=== PATIENT | male | born 1945 | race Caucasian/White ===

== ENCOUNTER → 2023-12-25 06:25 | Outpatient (REF) | payer MEDICARE, OTHER, SELFPAY ==
[2023-12-25 09:12] LABS: ALT (SGPT) 21 U/L (0-50); AST (SGOT) 29 U/L (17-59); Alkaline Phosphatase 81 U/L (38-126); Blood Urea Nitrogen 62 mg/dl (9-20); Calcium 9.2 mg/dl (8.4-10.2); Carbon Dioxide 20 mmol/L (22-30); Chloride 103 mmol/L (98-107); Glucose 147 mg/dl (70-99); HDL Cholesterol 38 mg/dl; LDL Cholesterol, Calculated 48 mg/dl; Phosphorus 4.8 mg/dl (2.5-4.5); Potassium 4.7 mmol/L (3.5-5.1); Sodium 137 mmol/L (135-145); Total Bilirubin 0.8 mg/dl (0.2-1.3); Total Cholesterol 118 mg/dl (50-199); Total Protein 7.2 g/dl (6.3-8.2); Triglyceride 163 mg/dl (10-149); Very Low Density Lipoprotein 32 mg/dl (0-30); eGFR 19.08
[2023-12-25 09:22] LABS: Intact PTH 235.1 pg/ml (13.6-85.8)
[2023-12-25 09:40] LABS: TSH 9.37 uIU/ml (0.47-4.68)
[2023-12-25 09:44] LABS: Protein/creatinine Ratio 4.3; Urine Protein 270 mg/dl
[2023-12-25 09:56] LABS: Microalbumin, Random Urine > 57.0 mg/dl (0.6-1.7); Microalbumin/creatinine Ratio 899.1 mg/g
[2023-12-25 11:38] LABS: Glycohemoglobin (HgbA1c) 7.3 % (4.0-5.6)
== END ==
LOC: HWLAB 06:25
PROVIDERS: ATTENDING PHYSICIAN Specialist; FAMILY PHYSICIAN Internal Medicine
DX: N18.4 Chronic kidney disease, stage 4 (severe) (principal); E11.21 Type 2 diabetes mellitus with diabetic nephropathy; E03.9 Hypothyroidism, unspecified
CPT/HCPCS: 36415; 80053; 80061; 82043; 82570; 83036; 83970; 84100; 84156; 84439; 84443

== ENCOUNTER → 2024-01-22 12:35 | Outpatient (REF) | payer MEDICARE, OTHER, SELFPAY ==
[2024-01-22 16:15] LABS: Blood Urea Nitrogen 61 mg/dl (9-20); Carbon Dioxide 23 mmol/L (22-30); Chloride 98 mmol/L (98-107); Glucose 128 mg/dl (70-99); Potassium 4.2 mmol/L (3.5-5.1); Sodium 133 mmol/L (135-145); eGFR 24.48
== END ==
LOC: HWRAD 12:35
PROVIDERS: ATTENDING PHYSICIAN Specialist; FAMILY PHYSICIAN Internal Medicine
DX: N17.9 Acute kidney failure, unspecified (principal); N18.4 Chronic kidney disease, stage 4 (severe)
CPT/HCPCS: 36415; 76770; 80048

== ENCOUNTER → 2024-03-07 08:06 | Outpatient (REF) | payer MEDICARE, OTHER, SELFPAY | LOC: RCS 08:06 | PROVIDERS: ATTENDING PHYSICIAN Internal Medicine Cardiovascular Disease; FAMILY PHYSICIAN Internal Medicine | DX: I25.5 Ischemic cardiomyopathy (principal) | CPT/HCPCS: 93306 ==

== ENCOUNTER → 2024-03-28 06:46 | Outpatient (REF) | payer MEDICARE, OTHER, SELFPAY ==
[2024-03-28 10:00] LABS: Hematocrit 41.4 % (39.0-52.0); Hemoglobin 13.5 g/dL (13.0-18.0)
[2024-03-28 10:08] LABS: Albumin 4.1 g/dl (3.5-5.0); Blood Urea Nitrogen 48 mg/dl (9-20); Calcium 8.8 mg/dl (8.4-10.2); Carbon Dioxide 23 mmol/L (22-30); Chloride 104 mmol/L (98-107); Glucose 88 mg/dl (70-99); Phosphorus 4.5 mg/dl (2.5-4.5); Potassium 4.4 mmol/L (3.5-5.1); Sodium 138 mmol/L (135-145); eGFR 26.94
[2024-03-28 10:38] LABS: Urine Protein 393 mg/dl
[2024-03-29 11:04] LABS: Intact PTH 258.4 pg/ml (13.6-85.8)
== END ==
LOC: HWLAB 06:46
PROVIDERS: ATTENDING PHYSICIAN Specialist; FAMILY PHYSICIAN Internal Medicine
DX: N17.9 Acute kidney failure, unspecified (principal)
CPT/HCPCS: 36415; 80069; 82570; 83970; 84156; 85014; 85018

== ENCOUNTER → 2024-04-14 06:29 | Day surgery (SDC) | payer MEDICARE, OTHER, SELFPAY ==
[2024-04-14 07:16] LABS: Glucose - Point of Care 112 mg/dl (70-99)
== END ==
LOC: GI 06:29
PROVIDERS: ATTENDING PHYSICIAN Internal Medicine
DX: Z12.11 Encounter for screening for malignant neoplasm of colon (principal); D12.3 Benign neoplasm of transverse colon; K57.30 Diverticulosis of large intestine without perforation or abscess without bleeding; K64.8 Other hemorrhoids; Z86.010 Personal history of colon polyps
CPT/HCPCS: 45385; 88305; 82962

== ENCOUNTER → 2024-04-22 06:12 | Outpatient (REF) | payer MEDICARE, OTHER, SELFPAY ==
[2024-04-22 10:39] LABS: ALT (SGPT) 23 U/L (0-50); AST (SGOT) 28 U/L (17-59); Albumin 3.9 g/dl (3.5-5.0); Alkaline Phosphatase 77 U/L (38-126); Blood Urea Nitrogen 47 mg/dl (9-20); Calcium 9.2 mg/dl (8.4-10.2); Carbon Dioxide 21 mmol/L (22-30); Chloride 105 mmol/L (98-107); Glucose 130 mg/dl (70-99); HDL Cholesterol 31 mg/dl; LDL Cholesterol, Calculated 53 mg/dl; Potassium 4.7 mmol/L (3.5-5.1); Sodium 137 mmol/L (135-145); Total Bilirubin 0.8 mg/dl (0.2-1.3); Total Cholesterol 105 mg/dl (50-199); Total Protein 6.9 g/dl (6.3-8.2); Triglyceride 105 mg/dl (10-149); Very Low Density Lipoprotein 21 mg/dl (0-30); eGFR 24.48
[2024-04-22 10:52] LABS: Free T4 1.23 ng/dl (0.78-2.19)
[2024-04-22 11:06] LABS: TSH 7.76 uIU/ml (0.47-4.68)
[2024-04-22 11:26] LABS: Microalbumin, Random Urine > 57.0 mg/dl (0.6-1.7)
[2024-04-22 11:54] LABS: Glycohemoglobin (HgbA1c) 6.9 % (4.0-5.6)
== END ==
LOC: HWLAB 06:12
PROVIDERS: ATTENDING PHYSICIAN Internal Medicine
DX: E11.21 Type 2 diabetes mellitus with diabetic nephropathy (principal); E03.9 Hypothyroidism, unspecified
CPT/HCPCS: 36415; 80053; 80061; 82043; 83036; 84439; 84443

== ENCOUNTER 2024-05-13 09:37 | Inpatient (IN) | payer MEDICARE, OTHER, SELFPAY ==
[2024-05-13] VITALS (14 sets, daily range): BP systolic 99–123; BP diastolic 53–95; BMI 25.5; BMI 24.5
[2024-05-13 04:43] LABS: % Basophils 0.2 % (0-2); % Eosinophils 0.1 % (0-6); % Immature Granulocytes 0.9 % (0-0.5); % Monocytes 11.1 % (1.7-9.3); % Neutrophils 81.7 % (42.2-75.2); Absolute Immature Granulocytes 0.1 10^3/uL (0-0.05); Absolute Lymphocytes 0.6 10^3/uL (1.2-3.4); Absolute Monocytes 1.2 10^3/uL (0.1-0.6); Absolute Neutrophils 8.8 10^3/uL (1.4-6.5); Hematocrit 29.4 % (39.0-52.0); Hemoglobin 10.4 g/dL (13.0-18.0); Mean Corp Hgb Conc. 35.4 g/dL (33.0-37.0); Mean Corpuscular Hgb 31.1 pg (27.0-31.0); Mean Platelet Volume 10.4 fL (7.4-10.4); Nucleated Red Blood Cells % 0 % (-); Platelet Count 198 10^3/uL (130-400); Red Blood Cell Count 3.34 10^6/uL (4.70-6.10); Red Cell Dist. Width 12.7 % (11.5-14.5); White Blood Cell Count 10.7 10^3/uL (4.8-10.8)
[2024-05-13 04:55] LABS: AST (SGOT) 41 U/L (17-59); Albumin 3.2 g/dl (3.5-5.0); Alkaline Phosphatase 63 U/L (38-126); Blood Urea Nitrogen 84 mg/dl (9-20); Calcium 7.7 mg/dl (8.4-10.2); Carbon Dioxide 15 mmol/L (22-30); Chloride 95 mmol/L (98-107); Estimated Creatinine Clearance 17 ml/min; Glucose 261 mg/dl (70-99); Potassium 4.2 mmol/L (3.5-5.1); Sodium 125 mmol/L (135-145); Total Bilirubin 0.9 mg/dl (0.2-1.3); Total Protein 5.6 g/dl (6.3-8.2); eGFR 19.08
[2024-05-13 04:58] LABS: INR 1.28; PT 15.8 Sec (11.4-14.6)
[2024-05-13 05:09] LABS: ALT (SGPT) 43 U/L (0-50)
[2024-05-13 05:54] LABS: Troponin I 0.044 ng/ml
--- NOTE | 2024-05-13 06:10 | ED.GENMED ---
History of Present Illness
General
Chief Complaint: Fainting/Passed Out
Source: patient
Exam Limitations: none
Time Seen by Provider: 05/13/24 05:31
Nursing documentation reviewed up to this point in time: agreed with
History of Present Illness
History of Present Illness:
Pleasant 78-year-old male that presents with multiple syncopal episodes including one that caused a head strike. Patient sustained a laceration to the back of his head. According to he was on his way to the bathroom as he had been having
diarrhea and dark tarry stools. Patient does have a history of upper GI bleed. He had did have a bleeding ulcer in the past. Tonight when going to the bathroom he felt lightheaded and dizzy and passed out striking his head. When he finally got
to the toilet he passed out a second time. EMS was called and found him awake, alert, and oriented. His blood sugar was 290. He was given IV fluids to raise his hypotensive blood pressure.
Vital signs are stable. Patient not hypoxic
Nursing note reviewed. I agree with nursing documentation up to this point in time.
Home Meds and allergies reviewed.
NUMBER AND COMPLEXITY OF PROBLEMS ADDRESSED AT THE ENCOUNTER
� Chronic conditions affecting care: Coronary artery disease, hypertension, hyperlipidemia, upper GI bleed, [place]
� Acute Exacerbation and/or Progression of Chronic Illness: Acute GI bleed
� Differential Diagnosis includes: Upper GI bleed, ulcer, syncope, laceration
AMOUNT AND/OR COMPLEXITY OF DATA TO BE REVIEWED AND ANALYZED
I performed an independent evaluation of the following and my interpretation is:
EKG: EKG shows normal sinus rhythm rate 74 with normal intervals, left axis deviation. PAC and PVC present. No evidence of acute ischemia present.
CT:
X-rays:
Ultrasound:
Laboratory Studies: Hemoglobin is 10.4
Other:
Review of other/old records: Colonoscopy on 04/14/2024- A 4 mm polyp was found in the transverse colon. The polyp was
semi-sessile. The polyp was removed with a cold snare. Resection and retrieval were completed. Scattered diverticula were found in the left colon and right colon.
Internal hemorrhoids were found during retroflexion.
Clinical information was obtained by an independent historian: Significant other present at the bedside
Prescriptions/Medications Considered but not given:
Further testing considered but not performed:
RISK OF COMPLICATIONS AND/OR MORBIDITY OR MORTALITY OF PATIENT MANAGEMENT
Social determinants of health affecting care: Good Social Support
Discussion with other providers:
Hospitalist for admission
Escalation of care including admission/observation vs risk of discharge considered: Spoke with Dr. Rice, hospitalist who agreed to admit patient. Patient to be signed out to dayshift admitting hospitalist
CRITICAL CARE NOTE:
Total Time (exclusive of procedures):
Update:
Past History
Past History
ED Past Medical History: CAD, HTN, Hypercholesterolemia, NIDDM and Other (GI bleed, CKD)
ED Past Surgical History: Other
Social History
Tobacco: Non-smoker
Alcohol: Other
Drug: None
Personal:
Living: with family
Employment: Retired
Family History
Family History: Other
Review of Systems
Review of Systems
Allergies reviewed?: Yes
Other source history: family
All Other Systems: ROS reviewed and negative except as documented in HPI and ROS
Constitutional: Reports fatigue and sleep disturbance
EENT: Reports no symptoms
Respiratory: Reports no symptoms
Cardiac: Reports no symptoms
ABD/GI: Reports abdominal pain, diarrhea, bloody stools and black stools
: Reports no symptoms
Musculoskeletal: Reports no symptoms
Skin: Reports no symptoms
Neurological: Reports dizzy and headache
Endocrine: Reports no symptoms
Hematologic/Lymphatic: Reports no symptoms
Psychiatric: Reports anxiety
Phy Exam
General Physical Exam
General Presentation: well appearing and mild distress
General age: appears stated age
General Skin: warm and dry
General Habitus: normal and elderly
General Mental: alert
General Hydration: appears well hydrated
ENT Exam
ENT Exam: EOMI, pharynx normal, neck supple and normocephalic
Eye Exam
Eye Exam: PERRL, cornea clear and conjunctiva normal
Cardiovascular Exam
Cardiovascular Exam: regular rate/rhythm, no edema and no murmur
Pulmonary Exam
Pulmonary Exam: lungs clear and no respiratory distress
Gastrointestinal Exam
Gastrointestinal Exam: normal bowel sounds, non tender, soft, no organomegaly, no pulsatile mass and non distended
Stool: black
Guaiac Status: grossly bloody - positive
Neurological Exam
Neurological Exam: alert, oriented x3 and no sensory deficits
Musculoskeletal Exam
Musculoskeletal Exam: full ROM, neuro vasc intact and other (Cervical collar in place)
Skin Exam
Skin Exam: normal color and laceration (3 cm laceration to the posterior scalp)
Psychiatric Exam
Psychiatric Exam: normal mood/affect
Course
Orders/Labs/Results
Orders:
Orders
05/13/24 04:21
Cardiac Monitoring- Treatment ONCE
IV Insert/Care/Rem.- Treatment PRN
O2 Therapy [RESP] Urgent
Titrate/Wean O2 to maintain O2 sat greater than (%): 93
Special Instructions: MAINTAIN CONTINOUS O2 SATS > OR = 93%
Pulse Ox/spot Check [RESP] Urgent
Quantity: 1
Special Instructions: ON ROOM AIR
05/13/24 04:22
EKG [Electrocardiogram (*1)] Urgent
Reason for Study: Syncope
EKG- Treatment ONCE
05/13/24 04:27
Type+Screen Urgent
Complete Blood Count/With Diff Urgent
Comprehensive Metabolic Panel Urgent
PTT Urgent
Prothrombin Time Urgent
05/13/24 04:50
Troponin I Urgent
05/13/24 05:[address] [CT Head W/o Iv Contrast] Urgent
Comment:
Reason For Exam: fall strike to the head, passed out
05/13/24 05:34
Cervical Spine wo Contrast CT [CT Cervical Spine W/o Iv Contr] Urgent
Comment:
Reason For Exam: fall strike to the head, passed out
05/13/24 05:59
Tetanus/Diphth/Acelpertussis [Adacel] 0.5 ml IM .ONCE ONE
05/13/24 06:00
IV Insert/Care/Rem.- Treatment PRN
Pantoprazole 80 mg/100 ml Nss [Protonix] 80 mg in 100 ml IV NOW
Pantoprazole [Protonix IV] 80 mg IV NOW STA
05/13/24 06:56
NSS 1000mL Bolus WIDE OPEN 0.9% Sodium Chloride 1000 ml [Nss] 1,000 ml IV BOLUS
05/13/24 07:00
Flush (0.9% Sodium Chloride) [Flush (Nss)] See Dose Instructions IV PER PROTOCOL
Abnormal Lab Results
05/13/24 05/13/24
04:27 04:50
RBC 3.34 L 10^6/uL
(4.70-6.10)
Hgb 10.4 L g/dL
(13.0-18.0)
Hct 29.4 L %
(39.0-52.0)
MCH 31.1 H pg
(27.0-31.0)
Abs Immat Gran (auto) 0.1 H 10^3/uL
(0-0.05)
Absolute Neuts (auto) 8.8 H 10^3/uL
(1.4-6.5)
Absolute Lymphs (auto) 0.6 L 10^3/uL
(1.2-3.4)
Absolute Monos (auto) 1.2 H 10^3/uL
(0.1-0.6)
Immature Gran % 0.9 H %
(0-0.5)
Neutrophils % 81.7 H %
(42.2-75.2)
Lymphocytes % 6.0 L %
(20.5-51.1)
Monocytes % 11.1 H %
(1.7-9.3)
PT 15.8 H Sec
(11.4-14.6)
Sodium 125 L mmol/L
(135-145)
Chloride 95 L mmol/L
(98-107)
Carbon Dioxide 15 L mmol/L
(22-30)
BUN 84 H mg/dl
(9-20)
Creatinine 3.2 H mg/dL
(0.7-1.3)
Glucose 261 H mg/dl
(70-99)
Calcium 7.7 L mg/dl
(8.4-10.2)
Troponin I 0.044 H* ng/ml
Total Protein 5.6 L g/dl
(6.3-8.2)
Albumin 3.2 L g/dl
(3.5-5.0)
05/13/24 04:27
05/13/24 04:27
Vital Signs
Initial and Last Documented VS:
Initial Vital Signs
Temp Pulse Resp BP Pulse Ox
97.5 F 76 16 107/63 97
05/13/24 04:26 05/13/24 04:26 05/13/24 04:26 05/13/24 04:26 05/13/24 04:26
Last Documented Vital Signs
Temp Pulse Resp BP Pulse Ox
97.5 F 76 16 107/63 97
05/13/24 04:26 05/13/24 04:26 05/13/24 04:26 05/13/24 04:26 05/13/24 04:26
Procedures
Laceration Closure
Posterior Scalp:
Status of Wound: appears infected
Size of Wound in cm: 2
Description of Wound Edges: sharp
Preparation: cleaned with saline
Revision/Debridement: routine- no revision
Wound exploration: explored to base- no FB
Type of Closure: single layer closure
Skin Closure Material: skin regina
Number of sutures: 3
*Radiology
Radiology exam reviewed: radiology read reviewed and all reviewed NAD by ED Provider
*Critical Care Note
Total Time (30-74mins, 75-104mins- exclusive of procedures): 50
comment:
Critical care statement: A total of 50 minutes of critical care time was provided for this patient. This time is separate from time utilized to perform the aforementioned documented procedures. Aggregate critical care time includes only time
during which I was engaged in work directly related to the patient's care, as described above, whether at the bedside or elsewhere in the Emergency Department.
Update Note
Update Note:
05/13/2024 0618 AM: Tetanus shot updated
Rectal exam, performed in the presence of female nursing yielded melanotic stool which tested positive with a Hemoccult developer.
ED Attending Note
-
Portions of this chart may have been created with voice recognition software.� Occasional wrong word or��sound alike� substitutions may have occurred due to the inherent limitations of voice recognition software.
Discharge Plan
Departure
Patient Disposition: Admit
Date of Disposition: 05/13/24
Time of Disposition: 06:19
Admit to: ICU
Presentation/result/management discussed w/ accepting MD/DO: Hospitalist
Condition: Fair
Discharge Problem:
Elevated troponin, Acute GI bleeding, Syncope and collapse, Laceration of scalp, Acute hyponatremia
Prescriptions:
No Action
levothyroxine 50 MCG tablet
50 mcg PO DAILY
Januvia 50 MG tablet
25 mg PO DAILY
acetaminophen 325 MG tablet
650 mg PO Q4HPRN PRN (Reason: mild pain)
cyanocobalamin (vitamin B-12) 1,000 MCG tablet
1,000 mcg PO DAILY
glimepiride 2 MG tablet
2 mg PO BID
amlodipine 10 MG tablet
5 mg PO DAILY
cholecalciferol (vitamin D3) 2,000 UNITS tablet
2,000 units PO DAILY
dapagliflozin propanediol [Farxiga] 10 MG tablet
10 mg PO DAILY
sodium bicarbonate 650 MG tablet
650 mg PO BID Qty: 28 0RF
pantoprazole 40 MG tablet,delayed release (DR/EC)
40 mg PO BID Qty: 60 0RF
atorvastatin 40 MG tablet
40 mg PO QPM Qty: 90 5RF
aspirin 81 MG tablet,chewable
81 mg PO DAILY 0RF
ferrous sulfate [iron] 325 MG tablet
325 mg PO DAILY Qty: 90 5RF
nitroglycerin 0.4 MG tablet, sublingual
0.4 mg sublingual [id number] PRN (Reason: chest pain) Qty: 25 5RF
cyclobenzaprine 10 mg tablet
10 mg PO TID PRN (Reason: muscle spasm) Qty: 10 0RF
tamsulosin 0.4 mg Capsule
0.4 mg PO DAILY
calcitriol 0.25 mcg Capsule
0.25 mcg PO DAILY
Rx Instructions:
3 times a week
insulin glargine [Lantus Solostar U-100 Insulin] 100 unit/mL (3 mL) Insulin Pen
15 unit SC DAILY
silodosin 8 mg Capsule
8 mg PO DAILY
Referrals:
Gabriel Chatman DO [Family Provider] -
Interventions
Interventions:
*Risk Screen - Suicide Last Done: 05/13/24 04:26
*General Assessment Last Done: 05/13/24 04:26
*Neglect/Abuse Screening Last Done: 05/13/24 04:26
ED- Fall Risk Assessment Last Done: 05/13/24 04:37
*ED COVID-19 Vaccine History Last Done: 05/13/24 04:26
ED- Cardiac Assessment Last Done: 05/13/24 04:37
ED- Neurological Assessment Last Done: 05/13/24 04:37
Discharge Date and Time
Print Language: TURKMEN
[2024-05-13] MEDS: PROTONIX IV 80 MG IV (06:20)
[2024-05-13] MEDS: PROTONIX 100 IV ×2 (06:30→17:44)
[2024-05-13] MEDS: ADACEL 0.5 ML IM (06:38)
[2024-05-13] MEDS: NSS 1000 IV (07:29)
--- NOTE | 2024-05-13 08:42 | HPS.HSE ---
Addendum entered and electronically signed by Iveth Shaffer MD 05/13/24 10:02:
scalp Laceration post fall
-s/p 3 regina in ER - should be removed in 7-10 days
Addendum entered and electronically signed by Iveth Shaffer MD 05/13/24 09:16:
BPH
-continue LOBSTERMAN Flomax
-patient states he also takes daily Silodosin - will hold
Original Note:
Family Physician
-
Family Physician: Gabriel Chatman
Chief Complaint
-
multiple episodes of passing out
History of Present Illness
Mr. Harpal Humphrey is a 78 yo man with hx HTN, PUD, CAD, ischemic cardiomyopathy, HTN, HLD, NIDDM, CKD presents to the ER after episode of passing out.
Patient reports that he started feeling sick 3 days ago with upper abdominal pain and cramping. He had decreased appetite and ate and drank less than normal. Yesterday he had significant diarrhea and early this morning he has black tarry stool.
When getting out of bed to go to the bathroom he passed out and hit the back of his head on table therefore came to the ER.
No fevers/chills. No chest pain or shortness of breath. No LE swelling. He is not on diuretics at home.
Patient has a hx of PUD in past with similar symptoms.
Medical History
Past Medical History
Past Medical History: Reports Other (HTN, PUD, CAD, HTN, HLD, NIDDM, CKD)
Past Surgical History: Reports Other
Social History
Tobacco: Non-smoker
Family History
Family History: Not pertinent
Allergies / Home Medications
Allergies reflects when Allergies were last updated in [facility].
Home Medications with original date entered in [facility]
Allergy/Medication List:
Allergies
Allergy/AdvReac Type Severity Reaction Status Date / Time
No Known Allergies Allergy Verified 05/13/24 04:25
Home Medications
levothyroxine 50 mcg tablet 50 mcg PO DAILY Thyroid 08/01/17
sitagliptin phosphate 50 mg tablet (Januvia) 25 mg PO DAILY Diabetes 08/01/17
acetaminophen 325 mg tablet 650 mg PO Q4HPRN PRN mild pain 02/28/22
amlodipine 10 mg tablet 5 mg PO DAILY Blood pressure 02/28/22
cholecalciferol (vitamin D3) 50 mcg (2,000 unit) tablet 2,000 units PO DAILY Supplement 02/28/22
cyanocobalamin (vitamin B-12) 1,000 mcg tablet 1,000 mcg PO DAILY Supplement 02/28/22
dapagliflozin propanediol 10 mg tablet (Farxiga) 10 mg PO DAILY Diabetes 02/28/22
glimepiride 2 mg tablet 2 mg PO BID Diabetes 02/28/22
pantoprazole 40 mg tablet,delayed release 40 mg PO BID #60 tabs 03/04/22
sodium bicarbonate 650 mg tablet 650 mg PO BID #28 tabs 03/04/22
aspirin 81 mg chewable tablet 81 mg PO DAILY 03/09/22
atorvastatin 40 mg tablet 40 mg PO QPM #90 tabs 03/09/22
ferrous sulfate 325 mg (65 mg iron) tablet (iron) 325 mg PO DAILY #90 tabs 03/09/22
nitroglycerin 0.4 mg sublingual tablet 0.4 mg sublingual [id number] PRN chest pain #25 tabs 03/09/22
cyclobenzaprine 10 mg tablet 10 mg PO TID PRN muscle spasm #10 tabs 04/03/23
calcitriol 0.25 mcg capsule 0.25 mcg PO DAILY 05/13/24
insulin glargine 100 unit/mL (3 mL) subcutaneous pen (Lantus Solostar U-100 Insulin) 15 unit SC DAILY 05/13/24
silodosin 8 mg capsule 8 mg PO DAILY 05/13/24
tamsulosin 0.4 mg capsule 0.4 mg PO DAILY 05/13/24
Review of Systems
-
History Source: Patient
A 12 point ROS was completed and negative except as noted: Yes
Physical Exam
Vital Signs
Vital Signs
Temp Pulse Resp BP Pulse Ox
97.5 F 71 15 99/64 99
05/13/24 04:26 05/13/24 08:00 05/13/24 08:00 05/13/24 07:00 05/13/24 08:00
Physical Exam
General: No Apparent Distress
HEENT: PERRLA
Respiratory: Clear; No Wheezes
Cardiac: S1/S2 and Regular Rhythm
GI: Soft and Non Tender
Musculoskeletal: No Edema
Skin: Warm and Dry; No Rash
Neuro: AO x 3
Psych: Calm
Laboratory Results
-
05/13/24 04:27
05/13/24 04:27
Laboratory Results
PT 15.8 Sec (11.4-14.6) H 05/13/24 04:27
INR 1.28 05/13/24 04:27
APTT 31.0 Sec (23.4-35.0) 05/13/24 04:27
Total Bilirubin 0.9 mg/dl (0.2-1.3) 05/13/24 04:27
AST 41 U/L (17-59) 05/13/24 04:27
ALT 43 U/L (0-50) 05/13/24 04:27
Alkaline Phosphatase 63 U/L (38-126) 05/13/24 04:27
Troponin I 0.044 ng/ml H* 05/13/24 04:50
Data Reviewed
-
Diagnostic Radiology: Report Reviewed by me
Lab Data: Labs Reviewed by me
Impression/Plan
-
Mr. Harpal Humphrey is a 78 yo man with hx HTN, PUD, CAD, HTN, HLD, NIDDM, CKD presents to the ER after multiple episodes of passing out.
Triage VS: T 97.5, P 76, RR 16, BP 107/63, SpO2 97%
LABS: WBC 10.7, Hg 10.4, PLT 198, INR 1.28, Na 125, K+ 4.2, Cl 95, CO2 15, BUN 84, Cr 3.2, Glucose 261, Ca 7.7, Trop 0.[address]
HEAD CT
IMPRESSION:
1. No acute intracranial abnormality noted.
2. No acute fracture or subluxation of the cervical spine. Multilevel degenerative changes of the cervical spine.
Syncope
Concern for Upper GI Bleed with melena and elevated BUN
Acute Blood Loss Anemia
-IV protonix gtt started in the ER
-admit to telemetry
-trend Hg q 8 hours
-blood consent signed in ER
-keep NPO
-continue IV Protonix gtt
-IVF
-GI Consulted
-hold LOBSTERMAN aspirin for now
IDDM
-hold LOBSTERMAN Januvia, Glimepiride, Farxiga while NPO
-patient is on Lantus 15 units QD at home; order for 6 units now (hyperglycemic)
-ISS low
Acute Kidney Injury
Metabolic Acidosis, non-anion gap
-patient's baseline creatinine 2.4-2.6; 3.2 on admission labs
-s/p 1L IVF in ER, will give additional 500cc now
-sodium bicarb IVF (hold LOBSTERMAN oral sodium bicarb)
Hyponatremia
-likely hypovolemic in setting of above
-IVF as above
-repeat sodium at 10AM
non-MD Troponin Elevation
-stress from syncopal episode; acute blood loss anemia
-no chest pain
-trend
Ischemic cardiomyopathy
-TTE 03/07/24 with EF 40-45%, gobacl hypokinesis, mild/moderate MR, mildly dilated aortic root
-patient is not on diuretics at home
-monitor volume status closely
DVT PPx SCD
FULL CODE
76 minutes spent on patient evaluation, medical decision making, coordination of care
--- NOTE | 2024-05-13 09:47 | CON.GI ---
Addendum entered and electronically signed by Genna Goodman DO 05/13/24 12:14:
Patient seen and examined independently of NOEMY. I agree with her note with my additions below
Harpal is a 70-year-old male with history of peptic ulcer disease with bleeding duodenal ulcer requiring 3 units of blood back in February 2022 who has since had a repeat endoscopy soon after showing healing of that ulcer with Dr. Funes. He is here
after 1 episode of melena and syncope with a head laceration requiring regina. He is on 81 mg aspirin but no anticoagulation, does not take PPI despite prior ulcer and Peña's esophagus.
He is on amlodipine but no other antihypertensives. No beta-blockers.
Patient states for the last couple of days he has felt some burning indigestion and took a couple of Tums with a decreased appetite since Sunday and has not been drinking much. Patient states he had brown diarrhea the morning of the then
woke up at 2:30 in the morning with a feeling of fecal urgency then had a melenic stool and passed out hitting his head, to the ER. In March his hemoglobin was normal at 13.5. This morning 10.4 and then upon recheck at 10 AM was 8.4. He did receive
some fluids.
Vital signs show blood pressure of 105/66 with a heart rate of 73. He is comfortable. Denies any abdominal pain. States he has not had any bowel movement since 2:30 in the morning
His sodium on admission was 125 and now is 128 and he is on a PPI drip
Patient denies any significant weight loss. No known liver disease. Does have chronic kidney disease
# Symptomatic melena -on aspirin alone, currently hemodynamically stable with a significant drop in hemoglobin
-- Agree with PPI drip
-- Last episode of melena was at 2:30 in the morning with none since hospitalization
-- Slowly increasing sodium
-- Clear liquids today and will plan for endoscopy tomorrow hopefully after sodium comes back up to a safer range for anesthesia, but if he has significant overt bleeding we will proceed with emergent EGD today
-- Recheck hemoglobin this afternoon, transfuse if necessary, make sure he has a blood consent
Original Note:
Consultation
-
Date/Time Consultation Requested: 05/13/24899
Date/Time Consultation Performed: 05/13/24929
Requesting Provider: Iveth Shaffer MD
Performing Provider: NOEMY Rosales, Genna Goodman DO
Reason for Consultation: GI bleed
Medical History
Chief Complaint / HPI
Chief Complaint: syncope, indigestion
History of Present Illness:
Pt is a 78yo with hx PUD, peña's esophagus, HH, colon polyps, CAD, CKD, HTN, hyperlipidemia, NIDDM with onset of indigestion with decreased appetite since Sunday. Per family pt was also noted taking increased tums. He went to PCP 05/12 and
given antacid medication and reported diarrhea 05/12 in AM. He states at 2:30AM on 05/13 was noted with feeling of passing out then later passed black stool with ER evaluation. On admission noted with hbg 10.4 down from prior hbg 13.5, on 03/28/24 with
BUN 84 up from range of 40-50. Pt also noted with troponin elevation to 0.044 and Na 125. HR stable in ER but noted with some hypotension. Pt admits to daily ASA 81mg but denies other NSAID use. No Anticoagulation use. Hx PUD with EGD 02/2022
[facility] HH, concern for peña's, non bleeding DU with visible vessel injected and clip. Repeat EGD 12/2022 Ahmad with 2 cm HH, stage c2- M4 peña's gastritis and erythema in duodenum bx neg H pylori but noted intestinal metaplasia neg dysplasia.
Pt denies dysphagia, nausea, vomiting, diarrhea, constipation or red blood in stools. colon 04/2024- ahmad- 4 mm polyp TC, diverticulosis, IH, prep with scattered stool balls bx TA due repeat 1 year.
Past Medical History
Past Medical History: HTN, Hypercholesterolemia, NIDDM, Renal Failure and Other (peña's esophagus, HH, colon polyps, BPH)
Social History
Tobacco: Non-Smoker
Alcohol: None
Drug: None
Personal:
Living: With Family
Employment: Retired
Family History
Family History: Other (no family hx GI issues )
Allergies / Home Medications
Allergy/AdvReac Type Severity Reaction Status Date / Time
No Known Allergies Allergy Verified 05/13/24 04:25
�Medication �Instructions �Recorded
levothyroxine 50 mcg tablet 50 mcg PO DAILY Thyroid 08/01/17
sitagliptin phosphate 50 mg tablet 25 mg PO DAILY Diabetes 08/01/17
(Januvia)
acetaminophen 325 mg tablet 650 mg PO Q4HPRN PRN mild pain 02/28/22
amlodipine 10 mg tablet 5 mg PO DAILY Blood pressure 02/28/22
cyanocobalamin (vitamin B-12) 1,000 mcg PO DAILY Supplement 02/28/22
1,000 mcg tablet
dapagliflozin propanediol 10 mg 10 mg PO DAILY Diabetes 02/28/22
tablet (Farxiga)
sodium bicarbonate 650 mg tablet 650 mg PO BID #28 tabs 03/04/22
aspirin 81 mg chewable tablet 81 mg PO DAILY 03/09/22
atorvastatin 40 mg tablet 40 mg PO QPM #90 tabs 03/09/22
ferrous sulfate 325 mg (65 mg 325 mg PO DAILY #90 tabs 03/09/22
iron) tablet (iron)
calcitriol 0.25 mcg capsule 0.25 mcg PO MOWEFR 05/13/24
insulin glargine 100 unit/mL (3 15 unit SC DAILY 05/13/24
mL) subcutaneous pen (Lantus
Solostar U-100 Insulin)
ondansetron 4 mg disintegrating 4 mg PO DAILYPRN PRN nausea 05/13/24
tablet
pantoprazole 40 mg tablet,delayed 40 mg PO DAILY 05/13/24
release
silodosin 8 mg capsule 8 mg PO HS 05/13/24
tamsulosin 0.4 mg capsule 0.4 mg PO HS 05/13/24
Review of Systems
-
History Source: Patient and Family
Constitutional: Reports Other (decreased appetite last few days)
EENT: Reports No Symptoms
Respiratory: Reports No Symptoms
Cardiac: Reports Syncope
Abdomen/GI: Reports Abdominal Pain and Nausea (indigestion)
Musculoskeletal: Reports No Symptoms
Skin: Reports No Symptoms
Neurological: Reports Dizzy and Weakness
Endocrine: Reports No Symptoms
Hematologic/Lymphatic: Reports Bleeding
Vital Signs
Temp Pulse Resp BP Pulse Ox
97.5 F 76 17 123/95 98
05/13/24 04:26 05/13/24 09:15 05/13/24 09:15 05/13/24 09:00 05/13/24 09:15
Physical Exam
Exam
General: Well Developed, Well Nourished and No Apparent Distress
HEENT: Normocephalic and Anicteric
Respiratory: Clear
Cardiac: Regular Rhythm
GI: Soft
Rectal: Black (per ER) and Hem Positive
Musculoskeletal: No Clubbing and No Cyanosis
Skin: Warm and Dry
Neuro: Awake, Alert, AO x 3 and Other (hear of hearing)
Psych: Calm
Results
WBC 10.7 10^3/uL (4.8-10.8) 05/13/24 04:27
Hgb 10.4 g/dL (13.0-18.0) L 05/13/24 04:27
Hct 29.4 % (39.0-52.0) L 05/13/24 04:27
MCV 88.0 fL (80.0-94.0) 05/13/24 04:27
Plt Count 198 10^3/uL (130-400) 05/13/24 04:27
Absolute Neuts (auto) 8.8 10^3/uL (1.4-6.5) H 05/13/24 04:27
PT 15.8 Sec (11.4-14.6) H 05/13/24 04:27
INR 1.28 05/13/24 04:27
APTT 31.0 Sec (23.4-35.0) 05/13/24 04:27
Sodium 125 mmol/L (135-145) L 05/13/24 04:27
Potassium 4.2 mmol/L (3.5-5.1) 05/13/24 04:27
Chloride 95 mmol/L (98-107) L 05/13/24 04:27
Carbon Dioxide 15 mmol/L (22-30) L 05/13/24 04:27
BUN 84 mg/dl (9-20) H 05/13/24 04:27
Creatinine 3.2 mg/dL (0.7-1.3) H 05/13/24 04:27
Calcium 7.7 mg/dl (8.4-10.2) L 05/13/24 04:27
Total Bilirubin 0.9 mg/dl (0.2-1.3) 05/13/24 04:27
AST 41 U/L (17-59) 05/13/24 04:27
ALT 43 U/L (0-50) 05/13/24 04:27
Alkaline Phosphatase 63 U/L (38-126) 05/13/24 04:27
Diagnostic Image Results:
Prior GI Procedures:
EGD 02/2022 [facility] HH, concern for peña's, non bleeding DU with visible vessel injected and clip.
EGD 12/2022 Ahmad with 2 cm HH, stage c2- M4 peña's gastritis and erythema in duodenum bx neg H pylori but noted intestinal metaplasia neg dysplasia. due repeat 12/2024
colon 03/2023 Ahmad- fair prepe, 9 mm polyp, HT, diverticulosis repeat 1 year bx Sessile serrated lesion
colon 04/2024- ahmad- 4 mm polyp TC, diverticulosis, IH, prep with scattered stool balls repeat 1 year bx TA
Assessment / Plan
-
Pt is a 78yo with hx PUD, peña's esophagus, HH, colon polyps, CAD, CKD, HTN, hyperlipidemia, NIDDM with onset of indigestion with decreased appetite since Sunday with increased tums use. Was given antacid but PCP 05/12 but noted with sycope
and onset of black stools. On admission noted with hbg 10.4 down from prior hbg 13.5, on 03/28/24 with BUN 84 up from range of 40-50. Pt also noted with troponin elevation to 0.044 and Na 125. HR stable in ER but noted with some hypotension. Pt
admits to daily ASA 81mg but denies other NSAID use. No Anticoagulation use. Hx PUD with EGD 02/2022 [facility], concern for peña's, non bleeding DU with visible vessel injected and clip. Repeat EGD 12/2022 Ahmad with 2 cm HH, stage c2- M4
peña's gastritis and erythema in duodenum bx neg H pylori but noted intestinal metaplasia neg dysplasia. Pt was on PPI prior to admission with restart 05/12.
-melena with elevated BUN and indigestion concern for UGI bleed
-syncope prior to admission
-hypotension in ER
-hyponatremia
-elevated troponin
-hX UGI bleed 2021 with noted duodenal ulcer with visible vessel with rx
-Hiatal hernia
-peña's esophagus
other medical problems:
-colon polyps
-CAD
-CKD
-HTN
-hyperlipidemia
-NIDDM
-BPH
PLAN:
etiology of symptom with concern for UGI bleed- Peptic/duodenal ulcers as noted on in past, antony lesions with hx HH vs other
t/c EGD -- will review timing with Dr. Goodman with hyponatremia/troponin increase
await repeat labs this am with hyponatremia and elevated troponin on admission
trend hbg, transfuse less than 7
trend stool record
cont PPI gtt
NPO
updated family at bedside
will follow
-
-
Thank you for consultation and allowing me to participate in the patient's care. Please call the agricultural extension officer GI physician during the after hours with any questions or concerns.
[2024-05-13] MEDS: NSS 500 IV (10:03)
[2024-05-13] MEDS: FLUSH (NSS) 1 FLUSH IV (10:04)
[2024-05-13 10:28] LABS: Hemoglobin 8.4 g/dL (13.0-18.0)
[2024-05-13 10:49] LABS: Calcium 7.1 mg/dl (8.4-10.2); Chloride 104 mmol/L (98-107); Estimated Creatinine Clearance 19 ml/min; Glucose 144 mg/dl (70-99); Potassium 4.3 mmol/L (3.5-5.1); Sodium 128 mmol/L (135-145); eGFR 21.47
[2024-05-13 10:54] LABS: Troponin I 0.042 ng/ml
[2024-05-13 10:59] LABS: Blood Urea Nitrogen 87 mg/dl (9-20); Carbon Dioxide 17 mmol/L (22-30)
--- NOTE | 2024-05-13 13:10 | EDRN ---
Repeat H&H blood tube drawn and sent to lab at this time.
[2024-05-13 13:15] LABS: Hemoglobin 8.4 g/dL (13.0-18.0)
[2024-05-13] MEDS: SODIUM BICARBONATE 1150 MEQ IV (14:31)
[2024-05-13 16:50] LABS: Glucose - Point of Care 147 mg/dl (70-99)
[2024-05-13] MEDS: FLOMAX 0.4 MG PO (17:42)
[2024-05-13] MEDS: LANTUS 0.06 UNITS SC (17:44)
[2024-05-13] MEDS: LIPITOR 40 MG PO (17:47)
[2024-05-13 18:18] LABS: Hemoglobin 8.3 g/dL (13.0-18.0)
[2024-05-13 18:47] LABS: Troponin I 0.042 ng/ml
[2024-05-13 23:47] LABS: Glucose - Point of Care 111 mg/dl (70-99)
[2024-05-14] VITALS (13 sets, daily range): BP systolic 83–139; BP diastolic 45–78; PULSE 50–92
[2024-05-14 01:39] LABS: Hemoglobin 7.7 g/dL (13.0-18.0)
[2024-05-14] MEDS: PROTONIX 100 IV ×3 (04:19→23:09)
[2024-05-14 05:28] LABS: Glucose - Point of Care 126 mg/dl (70-99)
[2024-05-14] MEDS: SYNTHROID 50 MCG PO (06:18)
[2024-05-14 06:46] LABS: Hematocrit 22.2 % (39.0-52.0); Mean Corpuscular Hgb 31.9 pg (27.0-31.0); Mean Corpuscular Volume 88.4 fL (80.0-94.0); Mean Platelet Volume 10.6 fL (7.4-10.4); Platelet Count 135 10^3/uL (130-400); Red Blood Cell Count 2.51 10^6/uL (4.70-6.10); Red Cell Dist. Width 12.7 % (11.5-14.5)
--- NOTE | 2024-05-14 07:45 | PTCARENOTE ---
~01:15 Pt reported he 'passed gas' twice. Cleaning the pt there was a smear of bright, red blood from the rectum. No BM. Notified covering LENS CUTTER. No new orders at this time. H&H order for 02:00. Plan of care ongoing.
[2024-05-14] MEDS: LANTUS 0.06 UNITS SC (08:01)
[2024-05-14] MEDS: FLOMAX 0.4 MG PO (08:01)
[2024-05-14] MEDS: SODIUM BICARBONATE 1150 MEQ IV (08:36)
[2024-05-14 08:40] LABS: Blood Urea Nitrogen 85 mg/dl (9-20); Calcium 7.7 mg/dl (8.4-10.2); Carbon Dioxide 18 mmol/L (22-30); Chloride 107 mmol/L (98-107); Estimated Creatinine Clearance 19 ml/min; Glucose 95 mg/dl (70-99); Magnesium 2.2 mg/dl (1.6-2.3); Potassium 3.8 mmol/L (3.5-5.1); Sodium 135 mmol/L (135-145); eGFR 21.47
--- NOTE | 2024-05-14 10:47 | PN.CDI ---
CDI
- -
CDI:
Physician Documentation Request
Admit Date: 05/13/24 09:37
Dear Doctor Deena,
Clinical Indicators:
Patient admitted with syncope and acute blood loss anemia.
05/14 H & P, 'non-CT Troponin Elevation-stress from syncopal episode; acute blood loss anemia-no chest pain'
Troponin trend:
05/13/24 05/13/24 05/13/24
04:50 10:13 18:13
Troponin I 0.044 H* 0.042 H* 0.042 H*
Please clarify the likely etiology of the troponin elevation:
Non ischemic myocardial injury
Elevated troponin only
Other, please specify
Use of terms such as suspected, likely, concern for, or probable (associated with a specific diagnosis that is being evaluated, monitored, or treated as if it exists) are acceptable and can be coded in the inpatient setting, when documented at the
time of discharge.
Thank you,
Gisele Cuenca RN BSN
CDI Specialist
available via tiger text
Please use your independent medical judgment in providing your response.
[2024-05-14 11:27] LABS: Glucose - Point of Care 106 mg/dl (70-99)
[2024-05-14 11:59] LABS: Glucose - Point of Care 104 mg/dl (70-99)
--- NOTE | 2024-05-14 12:09 | W.PN.HOSP.TC ---
Today's Communication/Plan
-
transfuse 1 unit
full liquid diet
PPI gtt
PT
likely DC tomorrow
Assessment / Plan
Assessment / Plan
Mr. Harpal Humphrey is a 78 yo man with hx HTN, PUD, CAD, HTN, HLD, NIDDM, CKD presents to the ER after multiple episodes of passing out.
CERVICAL SPINE CT
HEAD CT
IMPRESSION:
1. No acute intracranial abnormality noted.
2. No acute fracture or subluxation of the cervical spine. Multilevel degenerative changes of the cervical spine.
EGD 05/14/24
Impression: - LA Grade C erosive esophagitis with no bleeding -
more mid esophagus and not in the area of the
peña's.
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
long-segment Peña's disease.
- Normal stomach. Biopsied.
- Multiple non-bleeding duodenal ulcers throughout.
Biopsied. Reviewed pictures from 2021 and these were
not present (previously on the bulb ulcer).Biopsied
for CMV/lymphoma as well.
Recommendation: - Return patient to hospital [facility] for ongoing care.
- Full liquid diet today, if no further bleeding, ok
for regular tomorrow.
- Use a proton pump inhibitor IV gtt today, then use a
proton pump inhibitor PO BID for 1 month, then once
daily indefinitely.
- Use sucralfate tablets 1 gram PO BID for 1 month,
then stop.
- The findings and recommendations were discussed with
the patient.
- Await pathology results.
- Transfuse one unit of blood.
- My office will call you in 1-2 weeks with the biopsy
results.
- Return to GI office at appointment to be scheduled.
Known to Dr. Funes
- I would recommend repeating the EGD in 2 months to
ensure healing and DO NOT STOP YOUR PPI (pantoprazole)
Syncope
Concern for Upper GI Bleed with melena and elevated BUN
Acute Blood Loss Anemia
-s/p EGD today with results above - erosive esophagitis and duodenal ulcers
-continue PPI gtt today then BID PPI
-Full liquid diet
-transfuse 1 unit PRBC for Hg 8 with cardiac hx
-PT
Scalp laceration s/p fall on admit
-s/p 3 regina in ER
-will need removal 7-10 days
IDDM
-hold BILLING CLERK Januvia, Glimepiride, Farxiga while NPO
-patient is on Lantus 15 units QD at home; continue lower dosing in the hospital
-ISS low
Acute Kidney Injury on CKD IV
Metabolic Acidosis, non-anion gap
-patient's baseline creatinine 2.4-2.6; 3.2 on admission labs
-s/p 1L IVF in ER, will give additional 500cc now
-stop fluids and resume sodium bicarb
Hyponatremia
-likely hypovolemic in setting of above
-resolved s/p IVF
non-[place] Troponin Elevation
-stress from syncopal episode; acute blood loss anemia
-no chest pain
remains low 0.042
Hx CAD
-s/p PCI 2021
-hold aspirin one more day
-BILLING CLERK statin
Ischemic cardiomyopathy
-TTE 03/07/24 with EF 40-45%, gobacl hypokinesis, mild/moderate MR, mildly dilated aortic root
-patient is not on diuretics at home
-monitor volume status closely
-stop fluids
DVT PPx SCD
FULL CODE
51 minutes spent on patient interaction, medical decision making, coordination of care
Anticipated Discharge: 24 - 48 hours
Subjective/Interval History
-
Date of Service: May 14, 2024
feeling much better today
abdominal discomfort improved
s/p EGD
Objective Data
-
Labs:
Laboratory Results
05/14/24 05/14/24
01:35 05:58
WBC 6.0
Hgb 7.7 L 8.0 L
Hct 22.2 L
Plt Count 135 D
Sodium 135
Potassium 3.8
Chloride 107
Carbon Dioxide 18 L
BUN 85 H
Creatinine 2.9 H
Glucose 95
Calcium 7.7 L
Vital Signs:
Vital Signs
Temp Pulse Resp BP Pulse Ox
97.8 F 75 15 112/61 98
05/14/24 11:35 05/14/24 11:30 05/14/24 11:30 05/14/24 11:30 05/14/24 11:30
I&O
05/13/24 05/14/24 05/15/24
06:59 06:59 06:59
Intake Total 940 / 940
Output Total 1600 / 1600
Balance -1600 / -1600 940 / 940
Review of Systems
-
History Source: Patient
All other systems: Reviewed and negative
Physical Exam
-
General: No Apparent Distress and Conversant
HEENT: PERRLA
Respiratory: Clear to Auscultation; Negative Wheezes
Cardiac: Regular Rhythm and S1/S2
GI: Soft and Nontender
Musculoskeletal: No Edema
Skin: Warm and Dry; Negative Rash
Neuro: AO x 3
Psych: Calm
Data Reviewed
-
Diagnostic Radiology: Report Reviewed by me
Labs: Labs Reviewed by me
--- NOTE | 2024-05-14 13:10 | CM ---
Patient seen with , initial assessment completed. Patient resides in a two story home with his , four steps to enter. Patient denies use of DME, denies VN and SNF history. Patient confirms PCP Dr. Graham, pharmacy [facility] in [place].
Patient confirms prescription coverage, denies food, housing/utility, and transportation insecurities. CM will continue to follow for all discharge planning needs.
Plan; home no needs, watch for PT evals for VN recommendations.
[2024-05-14 17:04] LABS: Glucose - Point of Care 222 mg/dl (70-99)
[2024-05-14] MEDS: NOVOLOG FLEXPEN-LOW RESISTANCE 2 UNITS SC (17:23)
[2024-05-14] MEDS: LIPITOR 40 MG PO (17:23)
[2024-05-14] MEDS: SODIUM BICARBONATE 650 MG PO (19:48)
[2024-05-14 21:14] LABS: Glucose - Point of Care 139 mg/dl (70-99)
--- NOTE | 2024-05-15 01:05 | PTCARENOTE ---
Pt's HR dropped to 40 while sleeping. This RN awoke pt, who was asymptomatic. HR increased back into the 60s after a few seconds. House HOOP PUNCHER Rylee notified, no new orders at this time.
[2024-05-15 03:33] VITALS: BP 131/63
[2024-05-15] MEDS: SYNTHROID 50 MCG PO (05:53)
[2024-05-15 07:20] VITALS: BP 145/70
[2024-05-15 07:29] LABS: Glucose - Point of Care 102 mg/dl (70-99)
[2024-05-15] MEDS: NOVOLOG FLEXPEN-LOW RESISTANCE SC ×2 (07:44→10:51)
[2024-05-15 08:38] LABS: Hematocrit 23.9 % (39.0-52.0); Hemoglobin 8.6 g/dL (13.0-18.0); Mean Corpuscular Hgb 31.3 pg (27.0-31.0); Mean Corpuscular Volume 86.9 fL (80.0-94.0); Platelet Count 153 10^3/uL (130-400); Red Blood Cell Count 2.75 10^6/uL (4.70-6.10); Red Cell Dist. Width 12.9 % (11.5-14.5); White Blood Cell Count 6.6 10^3/uL (4.8-10.8)
[2024-05-15] MEDS: SODIUM BICARBONATE 650 MG PO (08:42)
[2024-05-15] MEDS: LANTUS 0.06 UNITS SC (08:42)
[2024-05-15] MEDS: FLOMAX 0.4 MG PO (08:42)
[2024-05-15] MEDS: PROTONIX IV (08:57)
--- NOTE | 2024-05-15 09:10 | W.PN.GI.CBS2 ---
Today's Communication / Plan
-
-- Switch to oral PPI, continue Carafate, regular diet, okay for discharge, follow-up in the office
Assessment / Plan
-
Pt is a 78yo with hx PUD, peña's esophagus, HH, colon polyps, CAD, CKD, HTN, hyperlipidemia, NIDDM with onset of indigestion with decreased appetite since Sunday with increased tums use. Was given antacid but PCP 05/12 but noted with sycope
and onset of black stools. On admission noted with hbg 10.4 down from prior hbg 13.5, on 03/28/24 with BUN 84 up from range of 40-50. Pt also noted with troponin elevation to 0.044 and Na 125. HR stable in ER but noted with some hypotension. Pt
admits to daily ASA 81mg but denies other NSAID use. No Anticoagulation use. Hx PUD with EGD 02/2022 [facility], concern for peña's, non bleeding DU with visible vessel injected and clip. Repeat EGD 12/2022 Ahmad with 2 cm HH, stage c2- M4
peña's gastritis and erythema in duodenum bx neg H pylori but noted intestinal metaplasia neg dysplasia. Pt was on PPI prior to admission with restart 05/12.
-melena with elevated BUN and indigestion concern for UGI bleed
-syncope prior to admission
-hypotension in ER
-hyponatremia
-elevated troponin
-hX UGI bleed 2021 with noted duodenal ulcer with visible vessel with rx
-Hiatal hernia
-peña's esophagus
other medical problems:
-colon polyps
-CAD
-CKD
-HTN
-hyperlipidemia
-NIDDM
-BPH
05/14/[address] Goodman - DANIELA Grade C erosive esophagitis with no bleeding -
more mid esophagus and not in the area of the
peña's.
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
long-segment Peña's disease.
- Normal stomach. Biopsied.
- Multiple non-bleeding duodenal ulcers throughout.
Biopsied. Reviewed pictures from 2021 and these were
not present (previously on the bulb ulcer).Biopsied
for CMV/lymphoma as well.
05/15/24 -proton pump inhibitor PO BID for 1 month, then once
daily indefinitely.
- Use sucralfate tablets 1 gram PO BID for 1 month,
then stop.
Okay for regular diet. Okay to follow-up in the office--. Should get CBC in 1 week
Subjective
Subjective
Date of Service: May 15, 2024
Patient says he feels great. No overt bleeding
Objective
Data Reviewed
Laboratory Data:
Laboratory Results
05/15/24 08:21
Laboratory Results
PT 15.8 Sec (11.4-14.6) H 05/13/24 04:27
INR 1.28 05/13/24 04:27
APTT 31.0 Sec (23.4-35.0) 05/13/24 04:27
Magnesium 2.2 mg/dl (1.6-2.3) 05/14/24 05:58
Total Bilirubin 0.9 mg/dl (0.2-1.3) 05/13/24 04:27
AST 41 U/L (17-59) 05/13/24 04:27
ALT 43 U/L (0-50) 05/13/24 04:27
Alkaline Phosphatase 63 U/L (38-126) 05/13/24 04:27
Vital Signs and I&O:
Vital Signs
Temp Pulse Resp BP Pulse Ox
97.7 F 80 20 145/70 100
05/15/24 07:20 05/15/24 07:20 05/15/24 07:20 05/15/24 07:20 05/15/24 07:20
I&O
05/14/24 05/15/24 05/16/24
06:59 06:59 06:59
Intake Total 2990 / 2990
Output Total 1600 / 1600 2375 / 2375
Balance -1600 / -1600 615 / 615
Physical Exam
Physical Exam
HEENT: Anicteric
Cardiology: Normal Sinus Rhythm
GI: Soft, Non Distended and Non Tender
Extremities: No Edema
Neuro: Non Focal
[2024-05-15] MEDS: LOW STRENGTH ASPIRIN 81 MG PO (09:24)
[2024-05-15] MEDS: PROTONIX 40 MG PO (09:25)
[2024-05-15 10:31] LABS: Blood Urea Nitrogen 71 mg/dl (9-20); Calcium 7.7 mg/dl (8.4-10.2); Carbon Dioxide 20 mmol/L (22-30); Chloride 107 mmol/L (98-107); Estimated Creatinine Clearance 20 ml/min; Glucose 138 mg/dl (70-99); Magnesium 2.3 mg/dl (1.6-2.3); Potassium 3.6 mmol/L (3.5-5.1); Sodium 135 mmol/L (135-145); eGFR 22.39
--- NOTE | 2024-05-15 11:15 | W.PN.HOSP.TC ---
Addendum entered and electronically signed by Iveth Shaffer MD 05/16/24 07:26:
non-ischemic myocardial injury
-no chest pain
trop stable
CKD IV with rise in creatinine only - creatinine at baseline
Original Note:
Today's Communication/Plan
-
OK for DC today
Assessment / Plan
Assessment / Plan
Mr. Harpal Humphrey is a 78 yo man with hx HTN, PUD, CAD, HTN, HLD, NIDDM, CKD presents to the ER after multiple episodes of passing out in setting of melena, admitted for upper GIB.
CERVICAL SPINE CT
HEAD CT
IMPRESSION:
1. No acute intracranial abnormality noted.
2. No acute fracture or subluxation of the cervical spine. Multilevel degenerative changes of the cervical spine.
EGD 05/14/24
Impression: - LA Grade C erosive esophagitis with no bleeding -
more mid esophagus and not in the area of the
peña's.
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
long-segment Peña's disease.
- Normal stomach. Biopsied.
- Multiple non-bleeding duodenal ulcers throughout.
Biopsied. Reviewed pictures from 2021 and these were
not present (previously on the bulb ulcer).Biopsied
for CMV/lymphoma as well.
Recommendation: - Return patient to hospital [facility] for ongoing care.
- Full liquid diet today, if no further bleeding, ok
for regular tomorrow.
- Use a proton pump inhibitor IV gtt today, then use a
proton pump inhibitor PO BID for 1 month, then once
daily indefinitely.
- Use sucralfate tablets 1 gram PO BID for 1 month,
then stop.
- The findings and recommendations were discussed with
the patient.
- Await pathology results.
- Transfuse one unit of blood.
- My office will call you in 1-2 weeks with the biopsy
results.
- Return to GI office at appointment to be scheduled.
Known to Dr. Funes
- I would recommend repeating the EGD in 2 months to
ensure healing and DO NOT STOP YOUR PPI (pantoprazole)
Syncope
Concern for Upper GI Bleed with melena and elevated BUN
Acute Blood Loss Anemia
-s/p EGD 05/14 with results above - erosive esophagitis and duodenal ulcers
-s/p PPI gtt - transition to Protonix BID
-diet advanced
-Hg stable, OK for DC; repeat CBC in one week
-PT
Scalp laceration s/p fall on admit
-s/p 3 regina in ER
-will need removal 7-10 days 05/20-05/23
IDDM
-A1c 6.9%
-resume home meds on DC
-patient is on Lantus 15 units QD at home; continue lower dosing in the hospital
-ISS low
Acute Kidney Injury on CKD IV
Metabolic Acidosis, non-anion gap
-patient's baseline creatinine 2.4-2.6; 3.2 on admission labs
-s/p 1L IVF in ER, will give additional 500cc now
-stop fluids and resume sodium bicarb
Hyponatremia
-likely hypovolemic in setting of above
-resolved s/p IVF
non-[place] Troponin Elevation
-stress from syncopal episode; acute blood loss anemia
-no chest pain
remains low 0.042
Hx CAD
-s/p PCI 2021
-DAIRY LAB TECHNICIAN aspirin resumed
-DAIRY LAB TECHNICIAN statin
Ischemic cardiomyopathy
-TTE 03/07/24 with EF 40-45%, gobacl hypokinesis, mild/moderate MR, mildly dilated aortic root
-patient is not on diuretics at home
-monitor volume status closely
-stop fluids
DVT PPx SCD
FULL CODE
51 minutes spent on patient interaction, medical decision making, coordination of care
Anticipated Discharge: Today
Subjective/Interval History
-
Date of Service: May 15, 2024
feeling well
worked well with PT
wants to go home
Objective Data
-
Labs:
Laboratory Results
05/15/24
08:21
WBC 6.6
Hgb 8.6 L
Hct 23.9 L
Plt Count 153
Sodium 135
Potassium 3.6
Chloride 107
Carbon Dioxide 20 L
BUN 71 H
Creatinine 2.8 H
Glucose 138 H
Calcium 7.7 L
Vital Signs:
Vital Signs
Temp Pulse Resp BP Pulse Ox
97.7 F 80 20 145/70 100
05/15/24 07:20 05/15/24 07:20 05/15/24 07:20 05/15/24 07:20 05/15/24 07:20
I&O
05/14/24 05/15/24 05/16/24
06:59 06:59 06:59
Intake Total 2990 / 2990
Output Total 1600 / 1600 2375 / 2375
Balance -1600 / -1600 615 / 615
Review of Systems
-
History Source: Patient
All other systems: Reviewed and negative
Physical Exam
-
General: No Apparent Distress and Conversant
HEENT: PERRLA
Respiratory: Clear to Auscultation; Negative Wheezes
Cardiac: Regular Rhythm and S1/S2
GI: Soft and Nontender
Musculoskeletal: No Edema
Skin: Warm and Dry; Negative Rash
Neuro: AO x 3
Psych: Calm
Data Reviewed
-
Diagnostic Radiology: Report Reviewed by me
Labs: Labs Reviewed by me
--- NOTE | 2024-05-15 11:29 | W.DS.TRANS ---
DC Summary - [employer]
-
Discharge Instructions:
Discharge Diagnosis/Procedures Erosive Esophagitis; Duodenal Ulcers
Diet Diabetic, Carb Controlled
Activity As tolerated
Driving Restrictions As prior to admission
Bathing Restrictions None
Blood Work CBC in one week
Instructions:
Stand-Alone Forms:
Changes to Home Medications: Yes
Discharge Medications:
DC Medications w/original date entered in [employer]
levothyroxine 50 mcg tablet 50 mcg PO DAILY Thyroid 08/01/17
sitagliptin phosphate 50 mg tablet (Januvia) 25 mg PO DAILY Diabetes 08/01/17
acetaminophen 325 mg tablet 650 mg PO Q4HPRN PRN mild pain 02/28/22
amlodipine 10 mg tablet 5 mg PO DAILY Blood pressure 02/28/22
cyanocobalamin (vitamin B-12) 1,000 mcg tablet 1,000 mcg PO DAILY Supplement 02/28/22
dapagliflozin propanediol 10 mg tablet (Farxiga) 10 mg PO DAILY Diabetes 02/28/22
aspirin 81 mg chewable tablet 81 mg PO DAILY Blood Clot Prevention/Tx 05/13/24
atorvastatin 40 mg tablet 40 mg PO QPM High Cholesterol 05/13/24
calcitriol 0.25 mcg capsule 0.25 mcg PO MOWEFR Supplement 05/13/24
ferrous sulfate 325 mg (65 mg iron) tablet (iron) 325 mg PO DAILY Supplement 05/13/24
insulin glargine 100 unit/mL (3 mL) subcutaneous pen (Lantus Solostar U-100 Insulin) 15 unit SC DAILY Diabetes 05/13/24
ondansetron 4 mg disintegrating tablet 4 mg PO DAILYPRN PRN nausea 05/13/24
sodium bicarbonate 650 mg tablet 650 mg PO BID Supplement 05/13/24
tamsulosin 0.4 mg capsule 0.4 mg PO HS PROSTATE ISSUES 05/13/24
pantoprazole 40 mg tablet,delayed release 40 mg PO BID Gastrointestinal Issue #120 tabs 05/15/24
sucralfate 1 gram tablet 1 g PO BID #60 tabs 05/15/24
Home Medication Changes
Take Protonix twice a day x 1 month then daily indefinitely
Take Sucralfate twice a day x 1 month
Stop Silodosin given you are on Flomax and this can cause dizziness - please discuss this further with your PCP.
Pending Results: Yes
Additional Pending Results:
EGD biopsy results
[2024-05-15 11:31] VITALS: BP 149/68
--- NOTE | 2024-05-15 11:52 | CM ---
Patient seen bedside, patient reports his is coming to transport him home. Patient reports no needs upon discharge. IMM reviewed, signed, placed in chart. CM will continue to follow for all discharge planning needs.
Plan; home no needs.
--- NOTE | 2024-05-15 14:05 | W.DCSUMMARY ---
Discharge Summary
Discharge Data
Date of Admission: 05/13/24
Date of Discharge: 05/15/24
-
Pending Results: No
Hospital Course
Discharging Physician : Dr. Iveth Shaffer
Disposition : Home
Primary care physician : Dr. Gabriel Chatman
Principal Discharge diagnosis : Erosive Esophagitis, Duodenal Ulcers
Hospital Course :
Mr. Harpal Humphrey is a 78 yo man with hx HTN, PUD, CAD, HTN, HLD, NIDDM, CKD presents to the ER after multiple episodes of passing out in setting of reported melena. Triage vitals stable. Labs with Hg 10.4, Cr 3.2 (baseline ~ 2.9). CT head and
cervical spine without acute abnormality. He was admitted to medicine with GI consulting for concern for upper GIB. He was started on an IV protonix gtt and underwent an endoscopy on 05/14 showing erosive esophagitis and duodenal ulcers (results
below). He stayed on PPI gtt for an additional 24 hours and is then transitioned to Protonix 40mg PO BID + Sucralfate BID x 1 month then Protonix daily indefinitely. Pathology results pending at time of discharge.
Patient lacerated scalp from fall and had 3 regina placed in ER. These will need to be removed in clinic 7-10 days post placement (05/20-05/23). Patient's creatinine is at baseline day of discharge.
He has follow up with GI next month and told to follow up with PCP next week.
Time spent on discharge was 35 minutes.
Important imaging findings :
CERVICAL SPINE CT
HEAD CT
IMPRESSION:
1. No acute intracranial abnormality noted.
2. No acute fracture or subluxation of the cervical spine. Multilevel degenerative changes of the cervical spine.
Procedure findings :
EGD 05/14/24
Impression: - LA Grade C erosive esophagitis with no bleeding -
more mid esophagus and not in the area of the
peña's.
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
long-segment Peña's disease.
- Normal stomach. Biopsied.
- Multiple non-bleeding duodenal ulcers throughout.
Biopsied. Reviewed pictures from 2021 and these were
not present (previously on the bulb ulcer).Biopsied
for CMV/lymphoma as well.
Recommendation: - Return patient to hospital [facility] for ongoing care.
- Full liquid diet today, if no further bleeding, ok
for regular tomorrow.
- Use a proton pump inhibitor IV gtt today, then use a
proton pump inhibitor PO BID for 1 month, then once
daily indefinitely.
- Use sucralfate tablets 1 gram PO BID for 1 month,
then stop.
- The findings and recommendations were discussed with
the patient.
- Await pathology results.
- Transfuse one unit of blood.
- My office will call you in 1-2 weeks with the biopsy
results.
- Return to GI office at appointment to be scheduled.
Known to Dr. Funes
- I would recommend repeating the EGD in 2 months to
ensure healing and DO NOT STOP YOUR PPI (pantoprazole)
Discharge Plan
-
Patient Disposition: Home (Routine Discharge)
Discharge Diagnosis/Procedures: Erosive Esophagitis; Duodenal Ulcers
Condition: Fair
Diet: Diabetic, Carb Controlled
Activity: As tolerated
Driving Restrictions: As prior to admission
Bathing Restrictions: None
Blood Work: CBC in one week
Activity Restrictions/Additional Instructions:
You will receive a phone call from GI office to go over biopsy results.
Referrals:
Cara Lechuga CRNP [Specified Professional Personl] - 06/30/24 11:30 am (Please call to reschedule if you can not keep this appointment. If your insurance requires a referral please contact your primary care physician prior to your
appointment. )
Gabriel Chatman, [Family Provider] - in less than 1 week
Additional Discharge Medication Instructions: Take Protonix twice a day x 1 month then daily indefinitely
Take Sucralfate twice a day x 1 month. Ensure there is at least 2 hours separation between taking Sucralfate and other medications (can prevent absorption).
Stop Silodosin given you are on Flomax and this can cause dizziness - please discuss this further with your PCP.
Prescriptions:
New
sucralfate 1 gram tablet
1 g PO BID Qty: 60 0RF
Continued
levothyroxine 50 MCG tablet
50 mcg PO DAILY
Januvia 50 MG tablet
25 mg PO DAILY
acetaminophen 325 MG tablet
650 mg PO Q4HPRN PRN (Reason: mild pain)
cyanocobalamin (vitamin B-12) 1,000 MCG tablet
1,000 mcg PO DAILY
amlodipine 10 MG tablet
5 mg PO DAILY
dapagliflozin propanediol [Farxiga] 10 MG tablet
10 mg PO DAILY
tamsulosin 0.4 mg Capsule
0.4 mg PO HS
calcitriol 0.25 mcg Capsule
0.25 mcg PO MOWEFR
insulin glargine [Lantus Solostar U-100 Insulin] 100 unit/mL (3 mL) Insulin Pen
15 unit SC DAILY
ondansetron 4 mg Tablet,Disintegrating
4 mg PO DAILYPRN PRN (Reason: nausea)
atorvastatin 40 MG tablet
40 mg PO QPM
sodium bicarbonate 650 MG tablet
650 mg PO BID
ferrous sulfate [iron] 325 MG tablet
325 mg PO DAILY
aspirin 81 MG tablet,chewable
81 mg PO DAILY
pantoprazole 40 MG tablet,delayed release (DR/EC)
40 mg PO BID Qty: 120 0RF
Discontinued
silodosin 8 mg Capsule
8 mg PO HS
Discharge Orders:
Discharge Patient (As Directed); Ordered 05/15/24
Ordered By: Iveth Shaffer
Discharge Date and Time
Discharge Date/Time: 05/15/24 12:12
Print Language: ITALIAN
--- NOTE | 2024-05-15 14:08 | PN.CDI ---
CDI
- -
CDI:
Physician Documentation Request
Admit Date: 05/13/24 09:37
Dear Doctor Deena,
Clinical Indicators:
Patient admitted with erosive Esophagitis & duodenal ulcers.
05/15 PN, 'Acute Kidney Injury on CKD IV...-patient's baseline creatinine 2.4-2.6; 3.2 on admission labs'
Cr/GFR trend:
05/13/24 05/13/24 05/14/24
04:27 10:13 05:58
Creatinine 3.2 H 2.9 H 2.9 H
eGFR 19.08 21.47 21.47
05/15/24
08:21
Creatinine 2.8 H
eGFR 22.39
Please clarify which of the following most accurately represents the patient's renal status:
CKD IV with rise in creatinine only
PRAVEEN on CKD IV (documentation complete)
Other, please specify
Criteria for PRAVEEN*
1 Increase in serum creatinine by > or = to 0.3 mg/dL (> or = to 26.5 micromol/L) within 48 hours, OR
2 Increase in serum creatinine to > or = to 1.5 times baseline, which is known or presumed to have occurred within 7 days, OR
3 Urine volume < 0.5 nL/kg/hour for six hours
Stages of Chronic Kidney Disease*
Level Description GFR
G1 Normal or High >90
G2 Mildly decreased 60-89
G3a Mildly to moderately decreased 45-59
G3b Moderately to severely decreased 30-44
G4 Severely decreased 15-29
G5 Kidney failure <15
Use of terms such as suspected, likely, concern for, or probable (associated with a specific diagnosis that is being evaluated, monitored, or treated as if it exists) are acceptable and can be coded in the inpatient setting, when documented at the
time of discharge.
Thank you,
Gisele Cuenca RN BSN
CDI Specialist
available via tiger text
Please use your independent medical judgment in providing your response.
*Source: Kidney Disease: Improving Global Outcomes (KDIGO) 2012
== END 2024-05-15 12:12 | disposition home or self-care (01) | DRG 378 ==
LOC: 4 WEST ACU 09:37
PROVIDERS: ADMITTING PHYSICIAN Student in an Organized Health Care Education/Training Program; CONSULT PHYSICIAN Internal Medicine; EMERGENCY PHYSICIAN Student in an Organized Health Care Education/Training Program; FAMILY PHYSICIAN Internal Medicine
PROC: 0DB98ZX Excision of Duodenum, Via Natural or Artificial Opening Endoscopic, Diagnostic (ICD-10-PCS; 2024-05-14)
PROC: 0DB68ZX Excision of Stomach, Via Natural or Artificial Opening Endoscopic, Diagnostic (ICD-10-PCS; 2024-05-14)
PROC: 30233N1 Transfusion of Nonautologous Red Blood Cells into Peripheral Vein, Percutaneous Approach (ICD-10-PCS; 2024-05-14)
DX: K26.4 Chronic or unspecified duodenal ulcer with hemorrhage (principal); D62 Acute posthemorrhagic anemia; N18.4 Chronic kidney disease, stage 4 (severe); E87.1 Hypo-osmolality and hyponatremia; N17.9 Acute kidney failure, unspecified; E87.20 Acidosis, unspecified; I5A Non-ischemic myocardial injury (non-traumatic); R55 Syncope and collapse; S01.01XA Laceration without foreign body of scalp, initial encounter; W18.39XA Other fall on same level, initial encounter; Y93.9 Activity, unspecified; Y92.002 Bathroom of unspecified non-institutional (private) residence as the place of occurrence of the external cause; I25.10 Atherosclerotic heart disease of native coronary artery without angina pectoris; E78.5 Hyperlipidemia, unspecified; N40.0 Benign prostatic hyperplasia without lower urinary tract symptoms; I25.5 Ischemic cardiomyopathy; K22.70 Barrett's esophagus without dysplasia; K44.9 Diaphragmatic hernia without obstruction or gangrene; K63.5 Polyp of colon; E78.00 Pure hypercholesterolemia, unspecified; E11.22 Type 2 diabetes mellitus with diabetic chronic kidney disease; I12.9 Hypertensive chronic kidney disease with stage 1 through stage 4 chronic kidney disease, or unspecified chronic kidney disease; I25.2 Old myocardial infarction; Z79.890 Hormone replacement therapy; Z79.84 Long term (current) use of oral hypoglycemic drugs; Z79.4 Long term (current) use of insulin; Z79.82 Long term (current) use of aspirin; Z87.11 Personal history of peptic ulcer disease
CPT/HCPCS: 88305; 12001; 70450; 72125; 80048; 80053; 82962; 83735; 84484; 85018; 85025; 85027; 85610; 85730; 86850; 86900; 86901; 86920; 88342; 90471; 90715; 93005; 96361; 96374; 96375; 97161; 99291; P9016

== ENCOUNTER → 2024-05-22 08:42 | Outpatient (REF) | payer MEDICARE, OTHER, SELFPAY ==
[2024-05-22 11:49] LABS: % Basophils 0.4 % (0-2); % Lymphocytes 12.8 % (20.5-51.1); % Monocytes 7.5 % (1.7-9.3); % Neutrophils 76.3 % (42.2-75.2); Absolute Eosinophils 0.2 10^3/uL (0-0.7); Absolute Immature Granulocytes 0.1 10^3/uL (0-0.05); Absolute Lymphocytes 1.3 10^3/uL (1.2-3.4); Absolute Monocytes 0.8 10^3/uL (0.1-0.6); Absolute Neutrophils 7.7 10^3/uL (1.4-6.5); Hematocrit 29.6 % (39.0-52.0); Hemoglobin 9.7 g/dL (13.0-18.0); Mean Corp Hgb Conc. 32.8 g/dL (33.0-37.0); Mean Corpuscular Hgb 30.2 pg (27.0-31.0); Mean Corpuscular Volume 92.2 fL (80.0-94.0); Mean Platelet Volume 9.6 fL (7.4-10.4); Nucleated Red Blood Cells % 0 % (-); Platelet Count 366 10^3/uL (130-400); Red Blood Cell Count 3.21 10^6/uL (4.70-6.10); Red Cell Dist. Width 13.6 % (11.5-14.5)
== END ==
LOC: HWLAB 08:42
PROVIDERS: ATTENDING PHYSICIAN Student in an Organized Health Care Education/Training Program; FAMILY PHYSICIAN Internal Medicine
DX: K92.2 Gastrointestinal hemorrhage, unspecified (principal)
CPT/HCPCS: 36415; 85025

== ENCOUNTER → 2024-07-28 06:18 | Day surgery (SDC) | payer MEDICARE, OTHER, SELFPAY ==
[2024-07-28 08:43] LABS: Glucose - Point of Care 106 mg/dl (70-99)
== END ==
LOC: GI 06:18
PROVIDERS: ATTENDING PHYSICIAN Internal Medicine
DX: K22.70 Barrett's esophagus without dysplasia (principal); K31.89 Other diseases of stomach and duodenum
CPT/HCPCS: 43239; 88305; 82962; 88342

== ENCOUNTER → 2024-09-19 07:01 | Outpatient (REF) | payer MEDICARE, OTHER, SELFPAY ==
[2024-09-19 09:01] LABS: % Basophils 0.6 % (0-2); % Eosinophils 4.4 % (0-6); % Immature Granulocytes 1.2 % (0-0.5); % Lymphocytes 19.7 % (20.5-51.1); % Monocytes 11.2 % (1.7-9.3); % Neutrophils 62.9 % (42.2-75.2); Absolute Eosinophils 0.3 10^3/uL (0-0.7); Absolute Immature Granulocytes 0.1 10^3/uL (0-0.05); Absolute Lymphocytes 1.4 10^3/uL (1.2-3.4); Absolute Monocytes 0.8 10^3/uL (0.1-0.6); Absolute Neutrophils 4.3 10^3/uL (1.4-6.5); Hematocrit 41.3 % (39.0-52.0); Hemoglobin 13.8 g/dL (13.0-18.0); Mean Corp Hgb Conc. 33.4 g/dL (33.0-37.0); Mean Corpuscular Hgb 30.1 pg (27.0-31.0); Nucleated Red Blood Cells % 0 % (-); Platelet Count 245 10^3/uL (130-400); Red Blood Cell Count 4.59 10^6/uL (4.70-6.10); Red Cell Dist. Width 13.7 % (11.5-14.5); White Blood Cell Count 6.9 10^3/uL (4.8-10.8)
[2024-09-19 09:14] LABS: Blood Urea Nitrogen 50 mg/dl (9-20); Carbon Dioxide 22 mmol/L (22-30); Chloride 104 mmol/L (98-107); Glucose 93 mg/dl (70-99); Iron 109 ug/dl (49-181); Phosphorus 4.4 mg/dl (2.5-4.5); Potassium 4.5 mmol/L (3.5-5.1); Sodium 139 mmol/L (135-145); eGFR 21.34
[2024-09-19 09:24] LABS: Percent Saturation 36 % (20-50); Total Iron Binding Capacity 296 ug/dl (261-462)
[2024-09-19 09:30] LABS: Vitamin D, 25-OH*** 31.5 ng/mL (30-80)
[2024-09-19 10:08] LABS: Protein/creatinine Ratio 5.3; Urine Protein 448 mg/dl
[2024-09-20 15:07] LABS: Intact PTH 361.8 pg/ml (13.6-85.8)
== END ==
LOC: HWLAB 07:01
PROVIDERS: ATTENDING PHYSICIAN Specialist; FAMILY PHYSICIAN Internal Medicine
DX: N18.4 Chronic kidney disease, stage 4 (severe) (principal); D50.0 Iron deficiency anemia secondary to blood loss (chronic)
CPT/HCPCS: 36415; 80069; 82306; 82570; 83540; 83550; 83970; 84156; 85025

== ENCOUNTER → 2024-10-14 06:52 | Outpatient (REF) | payer MEDICARE, OTHER, SELFPAY ==
[2024-10-14 09:47] LABS: Urine Albumin 3+ (Neg - Trace); Urine Bilirubin Negative (Negative); Urine Character Clear (Clear); Urine Color Yellow; Urine Glucose 3+ (Negative); Urine Ketone Negative (Negative); Urine Leukocyte Negative (Negative); Urine Nitrite Negative (Negative); Urine Occult Blood Negative (Negative); Urine Specific Gravity 1.015 (<1.030); Urine Urobilinogen Negative (Neg - 1+)
[2024-10-14 10:12] LABS: ALT (SGPT) 16 U/L (0-50); AST (SGOT) 25 U/L (17-59); Albumin 4.4 g/dl (3.5-5.0); Alkaline Phosphatase 84 U/L (38-126); Blood Urea Nitrogen 50 mg/dl (9-20); Calcium 9.2 mg/dl (8.4-10.2); Carbon Dioxide 20 mmol/L (22-30); Chloride 104 mmol/L (98-107); Glucose 116 mg/dl (70-99); HDL Cholesterol 37 mg/dl; LDL Cholesterol, Calculated 84 mg/dl; Sodium 137 mmol/L (135-145); Total Bilirubin 1.2 mg/dl (0.2-1.3); Total Cholesterol 145 mg/dl (50-199); Total Protein 7.4 g/dl (6.3-8.2); Triglyceride 120 mg/dl (10-149); Very Low Density Lipoprotein 24 mg/dl (0-30); eGFR 21.34
[2024-10-14 10:23] LABS: Free T4 1.31 ng/dl (0.78-2.19)
[2024-10-14 10:32] LABS: Urine Amorphous Seen; Urine Granular Cast 0-2 /LPF (0); Urine Hyaline Cast 0-2 /LPF (0-2); Urine Red Blood Cell 0-2 /HPF (0-2); Urine Urothelial Cell 0-2 /LPF (FEW)
[2024-10-14 10:33] LABS: Urine White Cell 0-2 /HPF (0-5)
[2024-10-14 10:53] LABS: Protein/creatinine Ratio 4.9; Urine Protein 363 mg/dl
[2024-10-14 12:32] LABS: Microalbumin, Random Urine > 57.0 mg/dl (0.6-1.7)
== END ==
LOC: HWLAB 06:52
PROVIDERS: ATTENDING PHYSICIAN Specialist; FAMILY PHYSICIAN Internal Medicine
DX: R80.9 Proteinuria, unspecified (principal); E11.21 Type 2 diabetes mellitus with diabetic nephropathy; E03.9 Hypothyroidism, unspecified; E78.2 Mixed hyperlipidemia
CPT/HCPCS: 36415; 80053; 80061; 81003; 81015; 82043; 82570; 83036; 84156; 84439; 84443

== ENCOUNTER → 2025-02-06 06:41 | Outpatient (REF) | payer MEDICARE, OTHER, SELFPAY ==
[2025-02-06 09:51] LABS: % Basophils 0.4 % (0-2); % Eosinophils 3.1 % (0-6); % Immature Granulocytes 0.3 % (0-0.5); % Monocytes 10.9 % (1.7-9.3); % Neutrophils 62.3 % (42.2-75.2); Absolute Eosinophils 0.2 10^3/uL (0-0.7); Absolute Lymphocytes 1.6 10^3/uL (1.2-3.4); Absolute Monocytes 0.7 10^3/uL (0.1-0.6); Absolute Neutrophils 4.2 10^3/uL (1.4-6.5); Hematocrit 41.6 % (39.0-52.0); Hemoglobin 13.9 g/dL (13.0-18.0); Mean Corp Hgb Conc. 33.4 g/dL (33.0-37.0); Mean Corpuscular Volume 92.9 fL (80.0-94.0); Mean Platelet Volume 9.9 fL (7.4-10.4); Nucleated Red Blood Cells % 0 % (-); Platelet Count 216 10^3/uL (130-400); Red Blood Cell Count 4.48 10^6/uL (4.70-6.10); Red Cell Dist. Width 13.1 % (11.5-14.5); White Blood Cell Count 6.8 10^3/uL (4.8-10.8)
[2025-02-06 10:16] LABS: Albumin 4.3 g/dl (3.5-5.0); Blood Urea Nitrogen 44 mg/dl (9-20); Calcium 9.3 mg/dl (8.4-10.2); Carbon Dioxide 22 mmol/L (22-30); Chloride 106 mmol/L (98-107); Glucose 83 mg/dl (70-99); Phosphorus 4.3 mg/dl (2.5-4.5); Potassium 4.2 mmol/L (3.5-5.1); Sodium 141 mmol/L (135-145); eGFR 21.34
[2025-02-06 10:35] LABS: Protein/creatinine Ratio 3.3; Urine Protein 359 mg/dl
[2025-02-07 09:37] LABS: Intact PTH 195.9 pg/ml (13.6-85.8)
== END ==
LOC: HWLAB 06:41
PROVIDERS: ATTENDING PHYSICIAN Specialist; FAMILY PHYSICIAN Internal Medicine
DX: N18.4 Chronic kidney disease, stage 4 (severe) (principal)
CPT/HCPCS: 36415; 80069; 82570; 83970; 84156; 85025

== ENCOUNTER → 2025-04-14 06:22 | Outpatient (REF) | payer MEDICARE, OTHER, SELFPAY ==
[2025-04-14 10:06] LABS: Intact PTH 257.5 pg/ml (13.6-85.8)
[2025-04-14 10:18] LABS: TSH 8.95 uIU/ml (0.47-4.68)
[2025-04-14 10:40] LABS: Protein/creatinine Ratio 3.5; Urine Protein 290 mg/dl
[2025-04-14 10:53] LABS: Microalbumin, Random Urine > 57.0 mg/dl (0.6-1.7)
[2025-04-14 10:56] LABS: ALT (SGPT) 13 U/L (0-50); AST (SGOT) 19 U/L (17-59); Alkaline Phosphatase 68 U/L (38-126); Blood Urea Nitrogen 50 mg/dl (9-20); Calcium 8.9 mg/dl (8.4-10.2); Carbon Dioxide 24 mmol/L (22-30); Chloride 107 mmol/L (98-107); Glucose 93 mg/dl (70-99); HDL Cholesterol 30 mg/dl; LDL Cholesterol, Calculated 71 mg/dl; Phosphorus 4.7 mg/dl (2.5-4.5); Potassium 4.3 mmol/L (3.5-5.1); Sodium 141 mmol/L (135-145); Total Cholesterol 119 mg/dl (50-199); Triglyceride 94 mg/dl (10-149); Very Low Density Lipoprotein 18 mg/dl (0-30); eGFR 20.49
[2025-04-14 11:43] LABS: Glycohemoglobin (HgbA1c) 6.6 % (4.0-5.6)
[2025-04-14 15:22] LABS: Free T4 1.39 ng/dl (0.78-2.19)
== END ==
LOC: HWLAB 06:22
PROVIDERS: ATTENDING PHYSICIAN Student in an Organized Health Care Education/Training Program; FAMILY PHYSICIAN Internal Medicine; REFERRING PHYSICIAN Specialist
DX: E11.21 Type 2 diabetes mellitus with diabetic nephropathy (principal); E03.9 Hypothyroidism, unspecified; I25.10 Atherosclerotic heart disease of native coronary artery without angina pectoris; R94.6 Abnormal results of thyroid function studies
CPT/HCPCS: 36415; 80053; 80061; 82043; 82570; 83036; 83970; 84100; 84156; 84439; 84443

== ENCOUNTER → 2025-08-27 06:30 | Outpatient (REF) | payer MEDICARE, OTHER, SELFPAY ==
[2025-08-27 10:40] LABS: Albumin 4.3 g/dl (3.5-5.0); Blood Urea Nitrogen 56 mg/dl (9-20); Calcium 9.4 mg/dl (8.4-10.2); Carbon Dioxide 25 mmol/L (22-30); Chloride 102 mmol/L (98-107); Glucose 108 mg/dl (70-99); Potassium 4.4 mmol/L (3.5-5.1); Sodium 134 mmol/L (135-145); eGFR 14.51
[2025-08-27 10:45] LABS: Hematocrit 40.3 % (39.0-52.0); Hemoglobin 13.7 g/dL (13.0-18.0)
== END ==
LOC: HWLAB 06:30
PROVIDERS: ATTENDING PHYSICIAN Specialist; FAMILY PHYSICIAN Internal Medicine
DX: N18.4 Chronic kidney disease, stage 4 (severe) (principal)
CPT/HCPCS: 36415; 80069; 83970; 85014; 85018

== ENCOUNTER → 2025-09-10 07:19 | Outpatient (REF) | payer MEDICARE, OTHER, SELFPAY ==
[2025-09-10 10:48] LABS: Blood Urea Nitrogen 43 mg/dl (9-20); Calcium 8.9 mg/dl (8.4-10.2); Carbon Dioxide 21 mmol/L (22-30); Chloride 104 mmol/L (98-107); Glucose 110 mg/dl (70-99); Potassium 4.3 mmol/L (3.5-5.1); Sodium 134 mmol/L (135-145); eGFR 18.16
== END ==
LOC: HWLAB 07:19
PROVIDERS: ATTENDING PHYSICIAN Specialist; FAMILY PHYSICIAN Internal Medicine
DX: N18.4 Chronic kidney disease, stage 4 (severe) (principal)
CPT/HCPCS: 36415; 80048

== ENCOUNTER → 2025-10-13 07:01 | Outpatient (REF) | payer MEDICARE, OTHER, SELFPAY ==
[2025-10-13 08:15] LABS: ALT (SGPT) 19 U/L (0-50); AST (SGOT) 25 U/L (17-59); Albumin 4.1 g/dl (3.5-5.0); Alkaline Phosphatase 69 U/L (38-126); Blood Urea Nitrogen 48 mg/dl (9-20); Calcium 9.1 mg/dl (8.4-10.2); Carbon Dioxide 23 mmol/L (22-30); Chloride 101 mmol/L (98-107); Glucose 82 mg/dl (70-99); Potassium 4.4 mmol/L (3.5-5.1); Sodium 134 mmol/L (135-145); Total Protein 7.2 g/dl (6.3-8.2); eGFR 21.20
[2025-10-13 10:54] LABS: Glycohemoglobin (HgbA1c) 6.4 % (4.0-5.9)
[2025-10-13 17:13] LABS: Microalbumin, Random Urine > 57.0 mg/dl (0.6-1.7)
== END ==
LOC: REG 07:01
PROVIDERS: ATTENDING PHYSICIAN Internal Medicine; OTHER PHYSICIAN Specialist
DX: E11.8 Type 2 diabetes mellitus with unspecified complications (principal); E11.21 Type 2 diabetes mellitus with diabetic nephropathy; N18.4 Chronic kidney disease, stage 4 (severe)
CPT/HCPCS: 36415; 80053; 82043; 82570; 83036